=== PATIENT | female | born 1970 | race Caucasian/White ===

== ENCOUNTER 2018-03-27 19:25 | Emergency (ER) | payer BC ==
[~2018-03-27] VITALS: Ht 160 cm; Wt 89.7 kg
[2018-03-27 19:26] VITALS: Ht 160 cm; Wt 89.7 kg
[2018-03-27] MEDS ORDERED: ASPIRIN 81 MG CHEW PO STA (19:46)
[2018-03-27] MEDS ORDERED: KETOROLAC TROMETHAMINE 30 MG/ML VIAL IV STA (19:46)
[2018-03-27] MEDS ORDERED: PROCHLORPERAZINE 5 MG/ML 2 ML VIAL IV STA (19:46)
[2018-03-27] MEDS ORDERED: SODIUM CHLORIDE 0.9% 1000ML 1,000 ML IV STA (19:46)
[2018-03-27] MEDS ORDERED: DiphenhydrAMINE HCL 50 MG/ML VIAL IV STA (19:46)
--- NOTE | 2018-03-27 20:05 | DIAGNOSTIC IMAGING REPORT ---
SINGLE VIEW CHEST CLINICAL HISTORY: Atypical chest pain. FINDINGS: An AP, portable, upright chest radiograph is obtained. No prior studies are available for comparison at the time of dictation. The examination is degraded by portable technique and patient rotation. The cardiomediastinal silhouette is unremarkable. There are low lung volumes and bibasilar atelectasis and elevation of the right hemidiaphragm. No airspace consolidation or large pleural effusion is identified. No pneumothorax is seen. The bony thorax is grossly intact. Fusion hardware is seen in the lower cervical spine. IMPRESSION: Low lung volumes with no acute cardiopulmonary abnormality. Electronically signed by: Vitaly Ribera M.D. 03/27/2018 8:04 PM Dictated Date/Time: 03/27/2018 8:03 PM
[2018-03-27 20:34] LABS: ISTAT CREATININE 0.7 mg/dl (0.6-1.3); ISTAT IONIZED CALCIUM 1.14 mmol/l (1.12-1.32); ISTAT POTASSIUM 4.2 mEq/L (3.3-5.0)
[2018-03-27 20:37] LABS: BASO % 0.2 %; BASO ABS # 0.02 K/uL (0-0.2); EOS % 0.6 %; EOS ABS # 0.08 K/uL (0-0.5); HEMATOCRIT 42.9 % (37-47); HEMOGLOBIN 15.2 g/dL (12.0-16.0); IG# 0.08 K/uL (0.00-0.02); LYMPH % 24.4 %; LYMPH ABS # 3.23 K/uL (1.2-3.4); MEAN CELL VOLUME 94.5 fL (80-100); MEAN CORPUSCULAR HEMOGLOBIN 33.5 pg (25-34); MEAN CORPUSCULAR HGB CONC 35.4 g/dl (32-36); MEAN PLATELET VOLUME 10.2 fL (7.4-10.4); MONO % 9.7 %; MONO ABS # 1.29 K/uL (0.11-0.59); NEUT % 64.5 %; NEUT ABS # 8.55 K/uL (1.4-6.5); PLATELET COUNT 202 K/uL (130-400); RED CELL DISTRIBUTION WIDTH CV 12.8 % (11.5-14.5); RED CELL DISTRIBUTION WIDTH SD 44.2 fL (36.4-46.3); WHITE BLOOD COUNT 13.25 K/uL (4.8-10.8)
[2018-03-27] MEDS ORDERED: AGG PO (20:41)
[2018-03-27] MEDS ORDERED: THIA100T11 PO (20:41)
[2018-03-27] MEDS ORDERED: TRAM-10 PO (20:41)
[2018-03-27] MEDS ORDERED: DIVA500T59 PO (20:41)
[2018-03-27] MEDS ORDERED: DRGTP100 PO (20:41)
[2018-03-27] MEDS ORDERED: LEVO100T PO (20:41)
[2018-03-27] MEDS ORDERED: ETHO250C PO (20:41)
[2018-03-27] MEDS ORDERED: [UNRECOGNIZED DRUG - CODE] PO (20:41)
[2018-03-27] MEDS ORDERED: CLON1TAB3 PO ×2 (20:41)
[2018-03-27] MEDS ORDERED: AMLO-110 PO (20:41)
[2018-03-27] MEDS ORDERED: CALC200T PO (20:41)
[2018-03-27] MEDS ORDERED: TIZA2CAP PO ×2 (20:41)
[2018-03-27] MEDS ORDERED: PROP40TA5 PO (20:41)
[2018-03-27] MEDS ORDERED: NORT25CA PO (20:41)
[2018-03-27 20:54] LABS: ALBUMIN 3.1 gm/dl (3.4-5.0); ALT/SGPT 27 U/L (12-78); AST/SGOT 55 U/L (15-37); BLOOD UREA NITROGEN 19 mg/dl (7-18); CALCIUM 8.5 mg/dl (8.5-10.1); CARBON DIOXIDE 26 mmol/L (21-32); CREATININE 0.78 mg/dl (0.60-1.20); GLUCOSE 68 mg/dl (70-99); LIPASE 170 U/L (73-393); POTASSIUM 4.1 mmol/L (3.5-5.1); SODIUM 137 mmol/L (136-145)
[2018-03-27 20:59] LABS: ALKALINE PHOSPHATASE 74 U/L (45-117); TOTAL PROTEIN 7.5 gm/dl (6.4-8.2)
--- NOTE | 2018-03-27 22:23 | DIAGNOSTIC IMAGING REPORT ---
CT SCAN OF THE BRAIN WITHOUT IV CONTRAST CLINICAL HISTORY: Headache. COMPARISON STUDY: MRI of the brain dated 03/15/2007. TECHNIQUE: Unenhanced axial CT scan of the brain is performed from the vertex to the skull base. A dose lowering technique was utilized adhering to the principles of ALARA. FINDINGS: Brain parenchyma: The brain parenchyma is normal in appearance. There is no hemorrhage, mass effect, or evidence of acute territorial ischemia by CT criteria. Shah-white matter is preserved. No extra-axial fluid collection is seen. Ventricles, sulci, cisterns: Normal in configuration. Intracranial vasculature: The visualized intracranial vasculature at the skull base is normal in appearance. Calvarium: Unremarkable. Sinuses and mastoids: The visualized paranasal sinuses are clear. The mastoid air cells are well pneumatized. Orbits: The bony orbits are grossly intact. IMPRESSION: No acute intracranial abnormality. Electronically signed by: Vitaly Ribera M.D. 03/27/2018 10:19 PM Dictated Date/Time: 03/27/2018 10:17 PM
[2018-03-27] MEDS ORDERED: OPTIRAY 320 IV PRN (22:30)
--- NOTE | 2018-03-27 22:33 | DIAGNOSTIC IMAGING REPORT ---
CT ANGIOGRAM OF THE BRAIN; CT ANGIOGRAM OF THE NECK CLINICAL HISTORY: Headache. COMPARISON STUDY: Unenhanced CT of the brain performed the same day 03/27/2018. TECHNIQUE: Following the IV administration of 117 of Optiray 320, CT angiogram of the head and neck was performed from the aortic arch to the vertex. Images are reviewed in the axial, sagittal, and coronal planes. 3-D MIPS images are created and assessed. IV contrast was administered without complication. All measurements were calculated based on NASCET criteria. A dose lowering technique was utilized adhering to the principles of ALARA. CT DOSE: 2551.26 mGy.cm FINDINGS: Brain parenchyma: The brain parenchyma is normal in appearance. There is no hemorrhage, mass effect, or evidence of acute territorial ischemia by CT criteria. There is no evidence of enhancing mass lesion on the angiogram phase images. The ventricles, sulci, and cisterns are normal in configuration. Shah-white matter differentiation is preserved. No extra-axial fluid collection is seen. Right carotid arterial system: The right common carotid artery is widely patent, as are the right internal and external carotid arteries. Left carotid arterial system: The left common carotid artery is widely patent, as are the left internal and external carotid arteries. Vertebral arteries: The vertebral arteries are widely patent and codominant. Subclavian arteries: Intracranial vasculature: There is origin of the left posterior cerebral artery. The internal carotid arteries are patent at the skull base, as are the anterior and middle cerebral arteries bilaterally. The vertebral arteries and the basilar artery are diminutive. The vertebrobasilar system and posterior cerebral arteries are widely patent. The vertebral arteries are codominant. There is no aneurysm, high-grade stenosis, or focal vessel cut off seen throughout the intracranial circulation. Jugular veins: Widely patent bilaterally. Dural sinuses: Patent. Lung apices: Partially visualized upper lobe lung parenchyma appears clear. Soft tissues: The visualized pharyngeal soft tissues are normal in appearance noting angiographic phase technique. The oropharyngeal airway appears widely patent. The salivary and thyroid glands are normal in appearance. No cervical lymphadenopathy is seen. Skeletal structures: The calvarium is normal in appearance. The cervical spine appears intact. Fusion hardware is noted in the lower cervical spine. Sinuses and mastoids: A 9 mm retention cyst is noted in the right maxillary antrum. The paranasal sinuses are otherwise clear. The mastoid air cells are well pneumatized. IMPRESSION: 1. No acute intracranial abnormality. 2. Unremarkable CT angiogram of the brain. 3. Unremarkable CT angiogram of the neck. Electronically signed by: Vitaly Ribera M.D. 03/27/2018 10:32 PM Dictated Date/Time: 03/27/2018 10:23 PM
--- NOTE | 2018-03-27 22:39 | DIAGNOSTIC IMAGING REPORT ---
CT ANGIOGRAM OF THE CHEST COMBO CLINICAL HISTORY: Atypical chest pain. Headache. COMPARISON STUDY: Chest x-ray dated 03/27/2018. TECHNIQUE: Before and following the IV administration of 117 cc of Optiray 320, CT angiogram of the chest was performed from the thoracic inlet to the upper abdomen utilizing the dissection protocol. Images are reviewed in the axial, sagittal, and coronal planes. 3-D MIPS images are created and assessed. IV contrast was administered without complication. A dose lowering technique was utilized adhering to the principles of ALARA. The examination is degraded by streak artifact from the arms which could not be elevated above the chest. FINDINGS: Thyroid: Atrophic. Thoracic aorta: No intramural hematoma is seen on the unenhanced series. The thoracic aorta is normal in caliber and demonstrates standard 3-vessel arch anatomy. No dissection is seen. The arch vessels are widely patent. Pulmonary vasculature: The pulmonary trunk is normal in caliber. There are no central filling defects identified in the pulmonary vessels to suggest pulmonary embolus. Note that this examination was not specifically protocoled to assess for pulmonary emboli. Heart: The heart is normal in size and configuration, and without pericardial effusion. Lungs and pleural spaces: Evaluation of lung parenchyma is modestly degraded by motion artifact. There is no airspace consolidation or pleural effusion. Foci of subsegmental atelectasis are present throughout both lungs. Mild diffuse peribronchial thickening suggests reactive airway disease. Fluid/secretions are noted in the left lower lobe airways. The trachea and central airways are clear. Mediastinum: There is no mediastinal lymphadenopathy. Mya: Clear. Axillae: There is no axillary lymphadenopathy. Upper abdomen: Cholecystectomy clips are identified. A small hiatal hernia is noted. Findings suggest hepatic steatosis.. Skeletal structures: No lytic or blastic bony lesions are seen. IMPRESSION: 1. There is no aneurysm or dissection identified involving the thoracic aorta. 2. There is no airspace consolidation or pleural effusion. Mild peribronchial thickening suggests reactive airway disease. Clinical correlation will be required. Electronically signed by: Vitaly Ribera M.D. 03/27/2018 10:38 PM Dictated Date/Time: 03/27/2018 10:33 PM
[2018-03-27] MEDS ORDERED: METHYLPREDNISOLONE 125 MG VIAL IV STA (22:42)
[2018-03-27] MEDS ORDERED: NITROGLYCERIN 0.4 MG SL PER TAB CHARGE SL PRN ×2 (22:45→23:45)
[2018-03-27 23:22] VITALS: TEMP 37.1
[2018-03-27] MEDS ORDERED: NITROGLYCERIN 2% OINTMENT 30GM TUBE EXT SCH (23:30)
[2018-03-27] MEDS ORDERED: ONDANSETRON INJ 2 MG/ML 2 ML VIAL IV PRN (23:45)
[2018-03-27] MEDS ORDERED: ALUMINUM/MAGNESIUM/SIMETH (MAALOX MAX) 30 ML UDC PO PRN (23:45)
[2018-03-27] MEDS ORDERED: POLYETHYLENE (MIRALAX) 17 GM PACK PO PRN (23:45)
[2018-03-27] MEDS ORDERED: MAGNESIUM HYDROXIDE SUSP 30 ML UDC PO PRN (23:45)
[2018-03-27] MEDS ORDERED: ETHOSUXIMIDE 500 MG PO SCH (23:45)
[2018-03-27] MEDS ORDERED: MoRPHine SULFATE 2 MG/ML CARP IV PRN (23:45)
[2018-03-27] MEDS ORDERED: TRAMADOL HCL 50 MG TAB PO SCH (23:45)
[2018-03-27] MEDS ORDERED: ACETAMINOPHEN 325 MG TAB PO PRN (23:45)
[2018-03-27] MEDS ORDERED: D5W AND NSS 1,000 ML IV SCH (23:45)
--- NOTE | 2018-03-27 23:45 | History and Physical ---
History & Physical Date & Time of Service: Mar 27, 2018 at 23:42 Chief Complaint: Chest Pain, Weekness In Left Side, Headach Primary Care Physician: Olvin Franz M.D. History of Present Illness Source: patient Past Medical/Surgical History 1) HTN 2) Seizure disorder Social History Smoking Status: Never Smoker Allergies Coded Allergies: No Known Allergies (Unverified , 03/27/18) Home Medications Scheduled Amlodipine (Norvasc), 5 MG PO DAILY Arginine (L-Arginine), 1,000 MG PO BID Calcium Carbonate-Vitamin D (Oscal 500/200 D-3), 1 TAB PO BID Clonazepam (Klonopin), 1 MG PO QAM Clonazepam (Klonopin), 2 MG PO QPM Dipyridamole/Aspirin (Aggrenox 25-200 mg), 1 CAP PO BID Divalproex Sodium (Depakote), 500 MG PO DAILY Ethosuximide (Zarontin), 500 MG PO AMPM Fentanyl (Fentanyl), 100 MCG PO PRN UD Levothyroxine Sodium (Synthroid), 100 MCG PO DAILY Nortriptyline (Pamelor), 50 MG PO HS Propranolol Hcl (Propranolol Hcl), 40 MG PO QID Thiamine Hcl (Vitamin B-1), 100 MG PO BID Tizanidine (Zanaflex), 2 MG PO QAM Tizanidine (Zanaflex), 4 MG PO QPM Tramadol (Ultram), 50 MG PO Q8H Physical Exam Vital Signs Date Time Temp Pulse Resp B/P (MAP) Pulse Ox O2 Delivery O2 Flow Rate FiO2 03/27/18 23:22 37.1 74 18 140/91 96 Room Air 03/27/18 22:03 67 16 133/89 98 Room Air 03/27/18 19:26 36.4 79 16 153/95 98 Room Air General Appearance: WD/WN, no apparent distress Head: normocephalic Eyes: normal inspection ENT: normal ENT inspection, pharynx normal Neck: supple, no JVD Respiratory/Chest: chest non-tender, lungs clear, normal breath sounds Cardiovascular: regular rate, rhythm, no edema Abdomen/GI: normal bowel sounds, non tender, soft Back: normal inspection, no CVA tenderness Extremities/Musculoskelatal: normal inspection, no calf tenderness 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, no motor/sensory deficits, alert, oriented x 3 Diagnostics Laboratory Results Results Past 24 Hours Test 03/27/18 20:15 03/27/18 20:20 Range/Units White Blood Count 13.25 4.8-10.8 K/uL Red Blood Count 4.54 4.2-5.4 M/uL Hemoglobin 15.2 12.0-16.0 g/dL Hematocrit 42.9 37-47 % Mean Corpuscular Volume 94.5 80-100 fL Mean Corpuscular Hemoglobin 33.5 25-34 pg Mean Corpuscular Hemoglobin Concent 35.4 32-36 g/dl Platelet Count 202 130-400 K/uL Mean Platelet Volume 10.2 7.4-10.4 fL Neutrophils (%) (Auto) 64.5 % Lymphocytes (%) (Auto) 24.4 % Monocytes (%) (Auto) 9.7 % Eosinophils (%) (Auto) 0.6 % Basophils (%) (Auto) 0.2 % Neutrophils # (Auto) 8.55 1.4-6.5 K/uL Lymphocytes # (Auto) 3.23 1.2-3.4 K/uL Monocytes # (Auto) 1.29 0.11-0.59 K/uL Eosinophils # (Auto) 0.08 0-0.5 K/uL Basophils # (Auto) 0.02 0-0.2 K/uL RDW Standard Deviation 44.2 36.4-46.3 fL RDW Coefficient of Variation 12.8 11.5-14.5 % Immature Granulocyte % (Auto) 0.6 % Immature Granulocyte # (Auto) 0.08 0.00-0.02 K/uL Sodium Level 137 136-145 mmol/L Potassium Level 4.1 3.5-5.1 mmol/L Chloride Level 103 98-107 mmol/L Carbon Dioxide Level 26 21-32 mmol/L Anion Gap 9.0 17.0 16-25 mmol/L Blood Urea Nitrogen 19 7-18 mg/dl Creatinine 0.78 0.60-1.20 mg/dl Est Creatinine Clear Calc Drug Dose 96.8 ml/min Estimated GFR () 106.4 Estimated GFR (Non- 91.8 BUN/Creatinine Ratio 23.9 10-20 Random Glucose 68 70-99 mg/dl Calcium Level 8.5 8.5-10.1 mg/dl Total Bilirubin 0.7 0.2-1 mg/dl Direct Bilirubin 0.3 0-0.2 mg/dl Aspartate Amino Transf (AST/SGOT) 55 15-37 U/L Alanine Aminotransferase (ALT/SGPT) 27 12-78 U/L Alkaline Phosphatase 74 45-117 U/L Troponin I < 0.015 0-0.045 ng/ml Total Protein 7.5 6.4-8.2 gm/dl Albumin 3.1 3.4-5.0 gm/dl Lipase 170 73-393 U/L Valproic Acid (Depakene) Level 65 50-100 mcg/ml Bedside Hemoglobin 15.3 12.0-16.0 g/dl Bedside Hematocrit 45 37-47 % Bedside Sodium 139 135-144 mEq/L Bedside Potassium 4.2 3.3-5.0 mEq/L Bedside Chloride 101 101-112 mEq/L Bedside Total CO2 26 24-31 mEq/l Bedside Blood Urea Nitrogen 20 7-18 mg/dl Bedside Creatinine 0.7 0.6-1.3 mg/dl Bedside Glucose (other) 75 70-99 mg/dl Bedside Ionized Calcium (Cici) 1.14 1.12-1.32 mmol/l Diagnostic Radiology CTA head: 1. No acute intracranial abnormality. 2. Unremarkable CT angiogram of the brain. 3. Unremarkable CT angiogram of the neck. CTA chest: 1. There is no aneurysm or dissection identified involving the thoracic aorta. 2. There is no airspace consolidation or pleural effusion. Mild peribronchial thickening suggests reactive airway disease. Clinical correlation will be required. EKG Sinus - ant inversions, inf Q wvs Impression Resuscitation Status
--- NOTE | 2018-03-28 00:16 | EMERGENCY ROOM VISIT NOTE ---
History Report prepared by Syed: Sonu Lewis Under the Supervision of: Dr. Surjit Oconnor D.O. First contact with patient: 19:29 Chief Complaint: CHEST PAIN Stated Complaint: CHEST PAIN, WEEKNESS IN LEFT SIDE, HEADACH History of Present Illness The patient is a 47 year old female who presents to the Emergency Room with complaints of a severe and constant headache that started this morning at 0900, 10.5 hours ago. The patient states that she is having associated focal weakness on her left side with the headache, which is localized to the right side of her head. She does follow with [facility] for these symptoms, which she notes occur every other week. This episode is different from her previous in the severity of the pain. She also complains of "substernal chest pain" that began 90 minutes ago. The chest pain is radiating into her back. She has had two heart catheterizations in the past. Source of History: patient Onset: 10.5 hours ago Position: head Symptom Intensity: worst of life Quality: other (Migraine) Timing: constant Associated Symptoms: + chest pain, + weakness (left side) Review of Systems See HPI for pertinent positives & negatives. A total of 10 systems reviewed and were otherwise negative. Past Medical & Surgical Medical Problems: (1) Chest pain Hx of Migraines Social History Smoking Status: Never Smoker Drug Use: none Marital Status: Housing Status: lives with significant other Current/Historical Medications Scheduled Amlodipine (Norvasc), 5 MG PO DAILY Arginine (L-Arginine), 1,000 MG PO BID Calcium Carbonate-Vitamin D (Oscal 500/200 D-3), 1 TAB PO BID Clonazepam (Klonopin), 1 MG PO QAM Clonazepam (Klonopin), 2 MG PO QPM Dipyridamole/Aspirin (Aggrenox 25-200 mg), 1 CAP PO BID Divalproex Sodium (Depakote), 500 MG PO DAILY Ethosuximide (Zarontin), 500 MG PO AMPM Fentanyl (Fentanyl), 100 MCG PO PRN UD Levothyroxine Sodium (Synthroid), 100 MCG PO DAILY Nortriptyline (Pamelor), 50 MG PO HS Propranolol Hcl (Propranolol Hcl), 40 MG PO QID Thiamine Hcl (Vitamin B-1), 100 MG PO BID Tizanidine (Zanaflex), 2 MG PO QAM Tizanidine (Zanaflex), 4 MG PO QPM Tramadol (Ultram), 50 MG PO Q8H Allergies Coded Allergies: No Known Allergies (Unverified , 03/27/18) Physical Exam Vital Signs Date Time Temp Pulse Resp B/P (MAP) Pulse Ox O2 Delivery O2 Flow Rate FiO2 03/27/18 23:22 37.1 74 18 140/91 96 Room Air 03/27/18 22:03 67 16 133/89 98 Room Air 03/27/18 19:26 36.4 79 16 153/95 98 Room Air Physical Exam GENERAL: Sitting up in bed, alert, chronically ill appearing, no distress, non- toxic EYE EXAM: normal conjunctiva. PERRL and EOM's intact. OROPHARYNX: no exudate, no erythema, lips, buccal mucosa, and tongue normal and mucous membranes are moist NECK: supple, no nuchal rigidity, no adenopathy, non-tender LUNGS: Clear to auscultation. Normal chest wall mechanics HEART: no murmurs, S1 normal and S2 normal ABDOMEN: abdomen soft, non-tender, normo-active bowel sounds, no masses, no rebound or guarding. BACK: Back is symmetrical on inspection and there is no deformity, no midline tenderness, no CVA tenderness. SKIN: no rashes and no bruising UPPER EXTREMITIES: upper extremities are grossly normal. LOWER EXTREMITIES: No pitting edema. NEURO EXAM: Normal sensorium, cranial nerves II-XII intact, normal speech, slight weakness of LUE with grasps and tremors with bilateral upper extremities. No focal weakness in lower extremities. Drift/tremors in both hands. Finger to nose intact. Gross sensation intact. Medical Decision & Procedures ER Provider Diagnostic Interpretation: Radiology results as stated below per my review and the radiologist's interpretation: CT ANGIOGRAM OF THE BRAIN; CT ANGIOGRAM OF THE NECK CLINICAL HISTORY: Headache. COMPARISON STUDY: Unenhanced CT of the brain performed the same day 03/27/2018. TECHNIQUE: Following the IV administration of 117 of Optiray 320, CT angiogram of the head and neck was performed from the aortic arch to the vertex. Images are reviewed in the axial, sagittal, and coronal planes. 3-D MIPS images are created and assessed. IV contrast was administered without complication. All measurements were calculated based on NASCET criteria. A dose lowering technique was utilized adhering to the principles of ALARA. CT DOSE: 2551.26 mGy.cm FINDINGS: Brain parenchyma: The brain parenchyma is normal in appearance. There is no hemorrhage, mass effect, or evidence of acute territorial ischemia by CT criteria. There is no evidence of enhancing mass lesion on the angiogram phase images. The ventricles, sulci, and cisterns are normal in configuration. Shah-white matter differentiation is preserved. No extra-axial fluid collection is seen. Right carotid arterial system: The right common carotid artery is widely patent, as are the right internal and external carotid arteries. Left carotid arterial system: The left common carotid artery is widely patent, as are the left internal and external carotid arteries. Vertebral arteries: The vertebral arteries are widely patent and codominant. Subclavian arteries: Intracranial vasculature: There is origin of the left posterior cerebral artery. The internal carotid arteries are patent at the skull base, as are the anterior and middle cerebral arteries bilaterally. The vertebral arteries and the basilar artery are diminutive. The vertebrobasilar system and posterior cerebral arteries are widely patent. The vertebral arteries are codominant. There is no aneurysm, high-grade stenosis, or focal vessel cut off seen throughout the intracranial circulation. Jugular veins: Widely patent bilaterally. Dural sinuses: Patent. Lung apices: Partially visualized upper lobe lung parenchyma appears clear. Soft tissues: The visualized pharyngeal soft tissues are normal in appearance noting angiographic phase technique. The oropharyngeal airway appears widely patent. The salivary and thyroid glands are normal in appearance. No cervical lymphadenopathy is seen. Skeletal structures: The calvarium is normal in appearance. The cervical spine appears intact. Fusion hardware is noted in the lower cervical spine. Sinuses and mastoids: A 9 mm retention cyst is noted in the right maxillary antrum. The paranasal sinuses are otherwise clear. The mastoid air cells are well pneumatized. IMPRESSION: 1. No acute intracranial abnormality. 2. Unremarkable CT angiogram of the brain. 3. Unremarkable CT angiogram of the neck. Electronically signed by: Vitaly Ribera M.D. 03/27/2018 10:32 PM Dictated Date/Time: 03/27/2018 10:[address] ANGIOGRAM OF THE BRAIN; CT ANGIOGRAM OF THE NECK CLINICAL HISTORY: Headache. COMPARISON STUDY: Unenhanced CT of the brain performed the same day 03/27/2018. TECHNIQUE: Following the IV administration of 117 of Optiray 320, CT angiogram of the head and neck was performed from the aortic arch to the vertex. Images are reviewed in the axial, sagittal, and coronal planes. 3-D MIPS images are created and assessed. IV contrast was administered without complication. All measurements were calculated based on NASCET criteria. A dose lowering technique was utilized adhering to the principles of ALARA. CT DOSE: 2551.26 mGy.cm FINDINGS: Brain parenchyma: The brain parenchyma is normal in appearance. There is no hemorrhage, mass effect, or evidence of acute territorial ischemia by CT criteria. There is no evidence of enhancing mass lesion on the angiogram phase images. The ventricles, sulci, and cisterns are normal in configuration. Shah-white matter differentiation is preserved. No extra-axial fluid collection is seen. Right carotid arterial system: The right common carotid artery is widely patent, as are the right internal and external carotid arteries. Left carotid arterial system: The left common carotid artery is widely patent, as are the left internal and external carotid arteries. Vertebral arteries: The vertebral arteries are widely patent and codominant. Subclavian arteries: Intracranial vasculature: There is origin of the left posterior cerebral artery. The internal carotid arteries are patent at the skull base, as are the anterior and middle cerebral arteries bilaterally. The vertebral arteries and the basilar artery are diminutive. The vertebrobasilar system and posterior cerebral arteries are widely patent. The vertebral arteries are codominant. There is no aneurysm, high-grade stenosis, or focal vessel cut off seen throughout the intracranial circulation. Jugular veins: Widely patent bilaterally. Dural sinuses: Patent. Lung apices: Partially visualized upper lobe lung parenchyma appears clear. Soft tissues: The visualized pharyngeal soft tissues are normal in appearance noting angiographic phase technique. The oropharyngeal airway appears widely patent. The salivary and thyroid glands are normal in appearance. No cervical lymphadenopathy is seen. Skeletal structures: The calvarium is normal in appearance. The cervical spine appears intact. Fusion hardware is noted in the lower cervical spine. Sinuses and mastoids: A 9 mm retention cyst is noted in the right maxillary antrum. The paranasal sinuses are otherwise clear. The mastoid air cells are well pneumatized. IMPRESSION: 1. No acute intracranial abnormality. 2. Unremarkable CT angiogram of the brain. 3. Unremarkable CT angiogram of the neck. Electronically signed by: Vitaly Ribera M.D. 03/27/2018 10:32 PM Dictated Date/Time: 03/27/2018 10:[address] ANGIOGRAM OF THE CHEST COMBO CLINICAL HISTORY: Atypical chest pain. Headache. COMPARISON STUDY: Chest x-ray dated 03/27/2018. TECHNIQUE: Before and following the IV administration of 117 cc of Optiray 320, CT angiogram of the chest was performed from the thoracic inlet to the upper abdomen utilizing the dissection protocol. Images are reviewed in the axial, sagittal, and coronal planes. 3-D MIPS images are created and assessed. IV contrast was administered without complication. A dose lowering technique was utilized adhering to the principles of ALARA. The examination is degraded by streak artifact from the arms which could not be elevated above the chest. FINDINGS: Thyroid: Atrophic. Thoracic aorta: No intramural hematoma is seen on the unenhanced series. The thoracic aorta is normal in caliber and demonstrates standard 3-vessel arch anatomy. No dissection is seen. The arch vessels are widely patent. Pulmonary vasculature: The pulmonary trunk is normal in caliber. There are no central filling defects identified in the pulmonary vessels to suggest pulmonary embolus. Note that this examination was not specifically protocoled to assess for pulmonary emboli. Heart: The heart is normal in size and configuration, and without pericardial effusion. Lungs and pleural spaces: Evaluation of lung parenchyma is modestly degraded by motion artifact. There is no airspace consolidation or pleural effusion. Foci of subsegmental atelectasis are present throughout both lungs. Mild diffuse peribronchial thickening suggests reactive airway disease. Fluid/secretions are noted in the left lower lobe airways. The trachea and central airways are clear. Mediastinum: There is no mediastinal lymphadenopathy. Mya: Clear. Axillae: There is no axillary lymphadenopathy. Upper abdomen: Cholecystectomy clips are identified. A small hiatal hernia is noted. Findings suggest hepatic steatosis.. Skeletal structures: No lytic or blastic bony lesions are seen. IMPRESSION: 1. There is no aneurysm or dissection identified involving the thoracic aorta. 2. There is no airspace consolidation or pleural effusion. Mild peribronchial thickening suggests reactive airway disease. Clinical correlation will be required. Electronically signed by: Vitaly Ribera M.D. 03/27/2018 10:38 PM Dictated Date/Time: 03/27/2018 10:33 PM SINGLE VIEW CHEST CLINICAL HISTORY: Atypical chest pain. FINDINGS: An AP, portable, upright chest radiograph is obtained. No prior studies are available for comparison at the time of dictation. The examination is degraded by portable technique and patient rotation. The cardiomediastinal silhouette is unremarkable. There are low lung volumes and bibasilar atelectasis and elevation of the right hemidiaphragm. No airspace consolidation or large pleural effusion is identified. No pneumothorax is seen. The bony thorax is grossly intact. Fusion hardware is seen in the lower cervical spine. IMPRESSION: Low lung volumes with no acute cardiopulmonary abnormality. Electronically signed by: Vitaly Ribera M.D. 03/27/2018 8:04 PM Dictated Date/Time: 03/27/2018 8:[address] SCAN OF THE BRAIN WITHOUT IV CONTRAST CLINICAL HISTORY: Headache. COMPARISON STUDY: MRI of the brain dated 03/15/2007. TECHNIQUE: Unenhanced axial CT scan of the brain is performed from the vertex to the skull base. A dose lowering technique was utilized adhering to the principles of ALARA. FINDINGS: Brain parenchyma: The brain parenchyma is normal in appearance. There is no hemorrhage, mass effect, or evidence of acute territorial ischemia by CT criteria. Shah-white matter is preserved. No extra-axial fluid collection is seen. Ventricles, sulci, cisterns: Normal in configuration. Intracranial vasculature: The visualized intracranial vasculature at the skull base is normal in appearance. Calvarium: Unremarkable. Sinuses and mastoids: The visualized paranasal sinuses are clear. The mastoid air cells are well pneumatized. Orbits: The bony orbits are grossly intact. IMPRESSION: No acute intracranial abnormality. Electronically signed by: Vitaly Ribera M.D. 03/27/2018 10:19 PM Dictated Date/Time: 03/27/2018 10:17 PM Laboratory Results 03/27/18 20:15 Red Blood Count 4.54, Mean Corpuscular Volume 94.5, Mean Corpuscular Hemoglobin 33.5, Mean Corpuscular Hemoglobin Concent 35.4, Mean Platelet Volume 10.2, Neutrophils (%) (Auto) 64.5, Lymphocytes (%) (Auto) 24.4, Monocytes (%) (Auto) 9.7, Eosinophils (%) (Auto) 0.6, Basophils (%) (Auto) 0.2, Neutrophils # (Auto) 8.55, Lymphocytes # (Auto) 3.23, Monocytes # (Auto) 1.29, Eosinophils # (Auto) 0.08, Basophils # (Auto) 0.02 03/27/18 20:15 Test 03/27/18 20:15 03/27/18 20:20 03/27/18 23:46 White Blood Count 13.25 K/uL (4.8-10.8) Red Blood Count 4.54 M/uL (4.2-5.4) Hemoglobin 15.2 g/dL (12.0-16.0) Hematocrit 42.9 % (37-47) Mean Corpuscular Volume 94.5 fL (80-100) Mean Corpuscular Hemoglobin 33.5 pg (25-34) Mean Corpuscular Hemoglobin Concent 35.4 g/dl (32-36) Platelet Count 202 K/uL (130-400) Mean Platelet Volume 10.2 fL (7.4-10.4) Neutrophils (%) (Auto) 64.5 % Lymphocytes (%) (Auto) 24.4 % Monocytes (%) (Auto) 9.7 % Eosinophils (%) (Auto) 0.6 % Basophils (%) (Auto) 0.2 % Neutrophils # (Auto) 8.55 K/uL (1.4-6.5) Lymphocytes # (Auto) 3.23 K/uL (1.2-3.4) Monocytes # (Auto) 1.29 K/uL (0.11-0.59) Eosinophils # (Auto) 0.08 K/uL (0-0.5) Basophils # (Auto) 0.02 K/uL (0-0.2) RDW Standard Deviation 44.2 fL (36.4-46.3) RDW Coefficient of Variation 12.8 % (11.5-14.5) Immature Granulocyte % (Auto) 0.6 % Immature Granulocyte # (Auto) 0.08 K/uL (0.00-0.02) Est Creatinine Clear Calc Drug Dose 96.8 ml/min Estimated GFR () 106.4 Estimated GFR (Non- 91.8 BUN/Creatinine Ratio 23.9 (10-20) Calcium Level 8.5 mg/dl (8.5-10.1) Total Bilirubin 0.7 mg/dl (0.2-1) Direct Bilirubin 0.3 mg/dl (0-0.2) Aspartate Amino Transf (AST/SGOT) 55 U/L (15-37) Alanine Aminotransferase (ALT/SGPT) 27 U/L (12-78) Alkaline Phosphatase 74 U/L (45-117) Total Protein 7.5 gm/dl (6.4-8.2) Albumin 3.1 gm/dl (3.4-5.0) Lipase 170 U/L (73-393) Valproic Acid (Depakene) Level 65 mcg/ml (50-100) Bedside Hemoglobin 15.3 g/dl (12.0-16.0) Bedside Hematocrit 45 % (37-47) Bedside Sodium 139 mEq/L (135-144) Bedside Potassium 4.2 mEq/L (3.3-5.0) Bedside Chloride 101 mEq/L (101-112) Bedside Total CO2 26 mEq/l (24-31) Anion Gap 17.0 mmol/L (16-25) Bedside Blood Urea Nitrogen 20 mg/dl (7-18) Bedside Creatinine 0.7 mg/dl (0.6-1.3) Bedside Glucose (other) 75 mg/dl (70-99) Bedside Ionized Calcium (Cici) 1.14 mmol/l (1.12-1.32) Laboratory results per my review. Medications Administered Medications (Trade) Dose Ordered Sig/Faheem Route Start Time Stop Time Status Last Admin Dose Admin Sodium Chloride 1,000 ml @ 999 mls/hr Q1H1M STAT IV 03/27/18 19:46 03/27/18 20:46 DC 03/27/18 20:23 999 MLS/HR Prochlorperazine Edisylate (Compazine Inj) 10 mg NOW STAT IV 03/27/18 19:46 03/27/18 19:50 DC 03/27/18 20:24 10 MG Ketorolac Tromethamine (Toradol Inj) 30 mg NOW STAT IV 03/27/18 19:46 03/27/18 19:50 DC 03/27/18 20:24 30 MG Diphenhydramine HCl (Benadryl Inj) 50 mg NOW STAT IV 03/27/18 19:46 03/27/18 19:50 DC 03/27/18 20:23 50 MG Aspirin (Aspirin Chew) 324 mg NOW STAT PO 03/27/18 19:46 03/27/18 19:50 DC 03/27/18 20:23 324 MG Nitroglycerin (Nitrostat Tab) 0.4 mg Q5M PRN SL 03/27/18 22:45 04/26/18 22:44 03/27/18 22:51 0.4 MG Methylprednisolone Sodium Succinate (Solu-Medrol IV) 125 mg NOW STAT IV 03/27/18 22:42 03/27/18 22:43 DC 03/27/18 22:51 125 MG ECG Per My Interpretation Indication: chest pain Rate (beats per minute): 74 Rhythm: sinus rhythm Findings: Q waves (Inferior), ST depression (Septal anterior leads), T-wave inversion (Septal, anterior leads) ED Course ED COURSE: Vital signs were reviewed and showed situationally hypertensive vitals. The patients medical record was reviewed The above diagnostic studies were performed and reviewed. ED treatments and interventions as stated above. 193: The patient was evaluated in room B4B. A complete history and physical examination was performed. 1945: Ordered Aspiring 324 mg PO, Benadryl 50 mg IV, Toradol 30 mg IV, Compazine 10 mg IV, Sodium Chloride 1000 mL @ 999 mL/hr IV. 2232: I checked on the patient at this time. Her headache is unchanged. 2311: I discussed the case with Dr. Mcknight - Neurology. She suggests another dosage of Depakote. 2349: I discussed the case with Dr. Foote - [facility] Hospitalist. He will evaluate her for further treatment. 2350: Upon reevaluation, the patient is resting in bed.I discussed my findings with the patient and she understands and agrees with the treatment plan. Based on the patients age, coexisting illnesses, exam and lab findings the decision to treat as an inpatient was made. The patient remained stable while under my care. The patient will be evaluated for further management. Medical Decision Differential Diagnosis includes but is not limited to headache, tension headache , cluster headache, migraine, subarachnoid hemorrhage, meningitis, mass, central venous thrombus, concussion, trauma and epidural/subdural hemorrhage, acute coronary syndrome, myocardial infarction, pericarditis, pulmonary embolus , aortic dissection, pneumonia, pneumothorax, musculoskeletal, shingles, esophageal. Patient is a 47-year-old female who presents the ER for headache located on the right side of her head along with reported left-sided weakness. She notes that she gets this at least every other week for the past several months and this is typical for her migraines. She also admits to chest pain which is been present about an hour and a half prior to arrival. She does have a history of hypertension. 2 previous catheterizations that were negative. EKG showed nonspecific ST depressions in the inferior with ST depressions in the septal anterior with flipped T waves. It took some time but this appears to be no just slightly worse than old. With her chest pain radiating through to the back to the neuro deficit CTA of the head, neck and chest was performed and all were negative. Patient was given IV steroids, Benadryl, Compazine, and Toradol. I discussed with neurology. On her initial exam she had faint weakness in the left upper extremity but otherwise is neurologically intact. She was given some nitro which did help with her chest pain. I obtained records from [facility] and [facility]. With the EKG being slightly worse from previous patient was discussed with internal medicine. He will evaluate her for further workup of her chest pain in combination with her likely migraine producing slight left-sided weakness. Medication Reconcilliation Current Medication List: was personally reviewed by me Blood Pressure Screening Patient's blood pressure: Normal blood pressure Consults Time Called: 230 Consulting Physician: Dr. Mcknight - Neurology. Returned Call: [phone] I discussed the case with Dr. Mcknight - Neurology. She suggests another dosage of Depakote. Additional Consults: Time Called: 232 Consulted Physician: Dr. Qamar [facility] Hospitalist Returned Call: [phone] Additional Comments: I discussed the case with Dr. Qamar [facility] Hospitalist. He will evaluate her for further treatment. Impression Primary Impression: Precordial chest pain Additional Impressions: Migraine Acute electrocardiogram changes Scribe Attestation The scribe's documentation has been prepared under my direction and personally reviewed by me in its entirety. I confirm that the note above accurately reflects all work, treatment, procedures, and medical decision making performed by me. Departure Information Dispostion Being Evaluated By Hospitalist Referrals Olvin Franz M.D. (PCP) Patient Instructions My [facility] Problem Qualifiers Additional Impressions: Migraine Migraine type: unspecified Status migrainosus presence: without status migrainosus Intractability: not intractable Qualified Codes: G43.909 - Migraine, unspecified, not intractable, without status migrainosus
--- NOTE | 2018-03-28 00:38 | Medical Consult ---
Consultation Date of Consultation: Mar 28, 2018. Attending Physician: History of Present Illness 47 y/o F Hx migraine disorder, PFO, recurrent chest pain, HTN. The pt developed a severe migraine this AM. She was intent on treating it at home but then additionally developed central CP. She denies SOB. She states that she was occasionally diaphoretic and nauseous, although this can occur with her migraines. She states that the pain radiated into her back. On arrival to the ER she was directed toward the CT scanner for a CTA of the head, neck and chest which were essentially normal. Her migraine improved following administration of steroids and Benadryl in the ER. Records were sourced from [facility] where sees her neurologist. She has undergone an extensive workup for chest pain which included a nuclear stress test and an echo one year ago and a cardiac catheterization in 2011. Results were essentially normal, although an echo did confirm a PFO. It is noted that her EKG is abnormal, however, it is unchanged form an EKG in 2015. EKG: Sinus rhythm, inf Q wvs, ant T wv inversions CTA head: 1. No acute intracranial abnormality. 2. Unremarkable CT angiogram of the brain. 3. Unremarkable CT angiogram of the neck. CTA chest: 1. There is no aneurysm or dissection identified involving the thoracic aorta. 2. There is no airspace consolidation or pleural effusion. Mild peribronchial thickening suggests reactive airway disease. Clinical correlation will be required. Past Medical/Surgical History 1) Recurrent chest pain - unclear etiology - normal cath 2011, normal nuc stress 2016 2) Abnormal EKG - inferior Q wvs, ant inversions - chronic since 2015 3) Severe migraine disorder 4) PFO 5) HTN Family History Both parents with history of CAD/CA - age of occurrence not known - states early CAD Social History Smoking Status: Never Smoker Drug Use: none Marital Status: Housing Status: lives with significant other Allergies Coded Allergies: No Known Allergies (Unverified , 03/27/18) Current Inpatient Medications Current Inpatient Medications Medications (Trade) Dose Ordered Sig/Faheem Route Start Time Stop Time Status Last Admin Dose Admin Ioversol (Optiray 320) 100 ml UD PRN IV 03/27/18 22:30 03/31/18 22:29 Nitroglycerin (Nitrostat Tab) 0.4 mg Q5M PRN SL 03/27/18 22:45 04/26/18 22:44 03/27/18 22:51 0.4 MG Nitroglycerin (Nitroglycerin 2% Oint) 2 inch Q6H EXT 03/27/18 23:30 04/26/18 23:29 Review of Systems Constitutional: + sweats, No fever, No chills Eyes: No worsening of vision ENT: No hearing loss, No unusual epistaxis, No nasal symptoms Respiratory: + dyspnea on exertion (chronic exertional dypnea), No cough, No sputum, No wheezing Cardiovascular: + chest pain Abdomen: + nausea, No pain, No vomiting Musculoskeletal: No joint pain Genitourinary - Female: No dysuria, No urinary frequency, No urinary urgency Neurologic: + weakness, + problem reported (Severe R sided migraine), No memory loss, No paralysis Psychiatric: No depression symptoms Endocrine: No fatigue Hematologic / Lymphatic: No abnormal bleeding/bruising Integumentary: No rash Allergic / Immunologic: No environmental allergies Physical Exam Date Time Temp Pulse Resp B/P (MAP) Pulse Ox O2 Delivery O2 Flow Rate FiO2 03/27/18 23:22 37.1 74 18 140/91 96 Room Air 03/27/18 22:03 67 16 133/89 98 Room Air 03/27/18 19:26 36.4 79 16 153/95 98 Room Air General Appearance: WD/WN, + pertinent finding (Overweight, middle aged female - no acute distress) Head: normocephalic Eyes: normal inspection ENT: normal ENT inspection, hearing grossly normal Neck: supple, no adenopathy, no JVD Respiratory/Chest: chest non-tender, lungs clear, normal breath sounds Cardiovascular: regular rate, rhythm, no edema, no gallop Abdomen/GI: normal bowel sounds, non tender, soft Back: normal inspection, no CVA tenderness Extremities/Musculoskelatal: normal inspection, no calf tenderness 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, no motor/sensory deficits, alert, + pertinent finding (She exhibits a generalized tremor and some global weakness) Skin: normal color, + pertinent finding (some acne is present about the face) Laboratory Results Last 24 Hours Test 03/27/18 20:15 03/27/18 20:20 03/27/18 23:46 White Blood Count 13.25 K/uL Red Blood Count 4.54 M/uL Hemoglobin 15.2 g/dL Hematocrit 42.9 % Mean Corpuscular Volume 94.5 fL Mean Corpuscular Hemoglobin 33.5 pg Mean Corpuscular Hemoglobin Concent 35.4 g/dl Platelet Count 202 K/uL Mean Platelet Volume 10.2 fL Neutrophils (%) (Auto) 64.5 % Lymphocytes (%) (Auto) 24.4 % Monocytes (%) (Auto) 9.7 % Eosinophils (%) (Auto) 0.6 % Basophils (%) (Auto) 0.2 % Neutrophils # (Auto) 8.55 K/uL Lymphocytes # (Auto) 3.23 K/uL Monocytes # (Auto) 1.29 K/uL Eosinophils # (Auto) 0.08 K/uL Basophils # (Auto) 0.02 K/uL RDW Standard Deviation 44.2 fL RDW Coefficient of Variation 12.8 % Immature Granulocyte % (Auto) 0.6 % Immature Granulocyte # (Auto) 0.08 K/uL Sodium Level 137 mmol/L Potassium Level 4.1 mmol/L Chloride Level 103 mmol/L Carbon Dioxide Level 26 mmol/L Anion Gap 9.0 mmol/L 17.0 mmol/L Blood Urea Nitrogen 19 mg/dl Creatinine 0.78 mg/dl Est Creatinine Clear Calc Drug Dose 96.8 ml/min Estimated GFR () 106.4 Estimated GFR (Non- 91.8 BUN/Creatinine Ratio 23.9 Random Glucose 68 mg/dl Calcium Level 8.5 mg/dl Total Bilirubin 0.7 mg/dl Direct Bilirubin 0.3 mg/dl Aspartate Amino Transf (AST/SGOT) 55 U/L Alanine Aminotransferase (ALT/SGPT) 27 U/L Alkaline Phosphatase 74 U/L Troponin I < 0.015 ng/ml Total Protein 7.5 gm/dl Albumin 3.1 gm/dl Lipase 170 U/L Valproic Acid (Depakene) Level 65 mcg/ml Bedside Hemoglobin 15.3 g/dl Bedside Hematocrit 45 % Bedside Sodium 139 mEq/L Bedside Potassium 4.2 mEq/L Bedside Chloride 101 mEq/L Bedside Total CO2 26 mEq/l Bedside Blood Urea Nitrogen 20 mg/dl Bedside Creatinine 0.7 mg/dl Bedside Glucose (other) 75 mg/dl Bedside Ionized Calcium (Cici) 1.14 mmol/l Assessment & Plan 47 y/o F Hx migraine disorder, PFO, recurrent chest pain, HTN. The pt developed a severe migraine this AM. She was intent on treating it at home but then additionally developed central CP. She denies SOB. She states that she was occasionally diaphoretic and nauseous, although this can occur with her migraines. She states that the pain radiated into her back. On arrival to the ER she was directed toward the CT scanner for a CTA of the head, neck and chest which were essentially normal. Her migraine improved following administration of steroids and Benadryl in the ER. Records were sourced from [facility] where sees her neurologist. She has undergone an extensive workup for chest pain which included a nuclear stress test and an echo one year ago and a cardiac catheterization in 2011. Results were essentially normal, although an echo did confirm a PFO. It is noted that her EKG is abnormal, however, it is unchanged form an EKG in 2016. 1) CP - in light of her extensive workup, negative trop and lack of EKG changes , she will likely be DCd for outpt follow-up. We will obtain an additional trop and it is noted that she has been monitored in the ER for an extended period. 2) Migraines - should follow-up with her neurologist as she is on a complex prophylactic regimen which includes Propranolol, Depakote, Ethosuximide and also has a PRN Fentanyl patch and Tramadol for breakthrough. 3) HTN - cont Norvasc as prescribed Total time for this consult including review of labs, meds, imaging, records - discussion with pt and ER attending - 36 min
[2018-03-28 01:14] VITALS: BP 147/82; PULSE 80; O2SAT 95
[2018-03-28] MEDS ORDERED: IV FLUIDS COMPLETED PRN (02:00)
[2018-03-28] MEDS ORDERED: HEPARIN SOD 5000 UNIT/0.5 ML CARP SQ SCH (06:00)
[2018-03-28] MEDS ORDERED: THIAMINE HCL 100 MG TAB PO SCH (09:00)
[2018-03-28] MEDS ORDERED: DIPYRIDAMOLE/ASPIRIN CAP PO SCH (09:00)
[2018-03-28] MEDS ORDERED: PROPRANOLOL HCL 40 MG PO SCH (09:00)
[2018-03-28] MEDS ORDERED: LEVOTHYROXINE 100 MCG TAB PO SCH (09:00)
[2018-03-28] MEDS ORDERED: CLONAZEPAM 1 MG TAB PO SCH ×2 (09:00→21:00)
[2018-03-28] MEDS ORDERED: DIVALPROEX SODIUM 500 MG DELAY RELEASE TAB PO SCH (09:00)
[2018-03-28] MEDS ORDERED: AMLODIPINE BESYLATE 5 MG TAB PO SCH (09:00)
[2018-03-28] MEDS ORDERED: NORTRIPTYLINE HCL 25 MG CAP PO SCH (21:00)
== END 2018-03-28 01:14 | disposition home or self-care (01) ==
LOC: C.EDB 19:26 → ENRESERV 23:56 → CANBEDREQ 03-28 01:14 → C.EDB 03-28 01:14
DX: R07.2 Precordial pain (principal); G43.909 Migraine, unspecified, not intractable, without status migrainosus; I10 Essential (primary) hypertension; Q21.1 Atrial septal defect; Z98.890 Other specified postprocedural states; Z79.899 Other long term (current) drug therapy; Z82.49 Family history of ischemic heart disease and other diseases of the circulatory system